=== PATIENT | male | born 1945 | race Caucasian/White ===

== ENCOUNTER 2019-07-04 19:00 | Inpatient (IN) | payer OTHER, MEDICAID ==
[~2019-07-04] VITALS: Ht 165.1 cm; Wt 59.0 kg
--- NOTE | 2019-07-04 19:00 | NUR ---
Placed in room 07 . Placed on ophthalmic medical technician, blood pressure machine and pulse oximeter. To gown for exam. Side rails up. Report given to Ivet CAMPOS.
[2019-07-04 19:05] VITALS: BP_SYST 83
--- NOTE | 2019-07-04 19:10 | NUR ---
VIC Marquis at bedside examining patient.
[2019-07-04] MEDS ORDERED: NACL 0.9% 1,000 ML IV ONE ×2 (19:15→21:45)
--- NOTE | 2019-07-04 19:15 | NUR ---
Pt came to the ED for [facility] for hypotension and lethargy. Reports pt has not been eating for the past 3 days. Pts daughter reports that he is non-verbal and has been for many years. No other complaints/injuries noted. Will cont. to monitor.
--- NOTE | 2019-07-04 19:40 | NUR ---
ER at bedside examining patient.
[2019-07-04 20:14] LABS: BASOPHILS # (AUTO) 0.1 K/uL (0.0-0.2); BASOPHILS % (AUTO) 0.5 % (0.0-2.0); EOSINOPHILS % (AUTO) 0.1 % (0.0-4.0); HEMATOCRIT 48.4 % (36-54); HEMOGLOBIN 15.4 g/dL (14.0-18.0); LYMPHOCYTES # (AUTO) 1.3 K/uL (1.0-5.5); LYMPHOCYTES % (AUTO) 6.4 % (20.5-51.5); MEAN CORPUSCULAR HEMOGLOBIN 26 pg (27-31); MEAN CORPUSCULAR HGB CONC 32 % (32-36); MEAN CORPUSCULAR VOLUME 81 fL (79.0-98.0); MONOCYTES # (AUTO) 1.7 K/uL (0.0-1.0); NEUTROPHILS # (AUTO) 17.9 K/uL (1.8-7.7); PLATELET COUNT (AUTO) 232 K/uL (130-430); RED BLOOD CELL COUNT(AUTO) 6.02 MIL/uL (4.2-6.2); RED CELL DISTRIBUTION WIDTH 17.5 % (9.0-15.0)
--- NOTE | 2019-07-04 20:50 | NUR ---
PT appears to be more awake. However, is non-verbal. ER MD made aware.
[2019-07-04 21:07] LABS: ANION GAP 20 (5-15); CHLORIDE 111 mmol/L (98-107); CREATININE 6.15 mg/dL (0.55-1.30); GLUCOSE 110 mg/dL (70-99); POTASSIUM 4.7 mmol/L (3.5-5.1); SODIUM SERUM 152 mmol/L (136-145); UREA NITROGEN, BLOOD 71 mg/dL (8-21)
[2019-07-04 21:13] LABS: ASPARTATE AMINOTRANSFERASE 153 U/L (10-37); TOTAL BILIRUBIN 0.3 mg/dL (0.0-1.0)
[2019-07-04] MEDS ORDERED: LAM25 PO (21:19)
[2019-07-04] MEDS ORDERED: MEMA10TA PO (21:19)
[2019-07-04] MEDS ORDERED: DOCU-144 PO (21:19)
[2019-07-04] MEDS ORDERED: TAMS-11 PO (21:19)
[2019-07-04] MEDS ORDERED: APIX5TAB PO (21:19)
[2019-07-04] MEDS ORDERED: OLAN2.5T3 PO (21:19)
[2019-07-04] MEDS ORDERED: LISI10TA5 PO (21:19)
[2019-07-04] MEDS ORDERED: MELA3TAB64 PO (21:19)
[2019-07-04] MEDS ORDERED: DEPAK250 PO (21:19)
--- NOTE | 2019-07-04 21:21 | NUR ---
Medication reconciliation completed with information provided by patients paperwork. Any prior medication reconciliation on file was reviewed and corrected.
[2019-07-04 21:43] LABS: ALANINE AMINOTRANSFERASE 124 U/L (12-78)
[2019-07-04 21:51] LABS: ALBUMIN 3.7 g/dL (3.4-4.8)
--- NOTE | 2019-07-04 22:10 | NUR ---
Patient will be admitted to care of Dr. Quan. Admitted to ICU unit. Belongings list completed. Complete and up to date summary report printed. SBAR report to be given at bedside with opportunity for questions.
--- NOTE | 2019-07-04 22:30 | NUR ---
Pt does not have any urine output. Upon observation, pt has a small clot. Changing 16 fr to 18 fr.
[2019-07-04] MEDS ORDERED: ACETAMINOPHEN 650 MG SUPP.RECT RC PRN (23:00)
[2019-07-04] MEDS ORDERED: ACETAMINOPHEN 325 MG TABLET PO PRN (23:00)
--- NOTE | 2019-07-04 23:00 | NUR ---
Transfer to ICU via ACLS protocol. Licensed nurse present. IV present no signs or symptoms of infiltration.
[2019-07-04 23:06] VITALS: BP_SYST 100
[2019-07-04] MEDS ORDERED: LORazepam 2 MG/ML VIAL IVP PRN (23:15)
[2019-07-04 23:20] VITALS: BP_SYST 100
[2019-07-04] MEDS: NACL 0.9% 1,000 ML IV SCH (23:55)
[2019-07-04] MEDS ORDERED: PIPERACILLIN/TAZOBACTAM 2.25 GM VIAL IV ONE (23:57)
[2019-07-05] VITALS (24 sets, daily range): BP systolic 84–136
[2019-07-05] MEDS ORDERED: NOREPINEPHRINE 4 MG/4 ML VIAL IV ONE ×2 (00:35→06:31)
--- NOTE | 2019-07-05 02:43 | NUR ---
CONSULTATION PAGED/CALLED Reason for Consultation: SEPSIS Person Who was Notified: SARAH Consulting Physician: ANA MARIA Almaraz Specialty: ID Ordering Physician: CONSULTATION PAGED/CALLED Reason for Consultation: RENAL FAILURE Person Who was Notified: SARAH Consulting Physician: ALDO Almaraz Specialty: RENAL Ordering Physician: CONSULTATION PAGED/CALLED Reason for Consultation: RESP. FAIL Person Who was Notified: SARAH Consulting Physician: SANTO Graduate Nurse Specialty: PULMO Ordering Physician: [] CONSULTATION PAGED/CALLED Reason for Consultation: SEIZURES Person Who was Notified: SARAH Consulting Physician: JONATHON MENDOZA Graduate Nurse Specialty: NEURO Ordering Physician: [] CONSULTATION PAGED/CALLED Reason for Consultation: NSTEMI Person Who was Notified: SARAH Consulting Physician: JOSIAH Graduate Nurse Specialty: CARDIO Ordering Physician: []
[2019-07-05] MEDS: NACL 0.9% 1,000 ML IV SCH ×3 (06:28→13:00)
[2019-07-05] MEDS: NOREPINEPHRINE BITARTRATE 4 MG in D5W 246 ML IV PRN ×2 (06:30→12:43)
[2019-07-05] MEDS: PIPERACILLIN/TAZOBACTAM 2.25 GM in NS 50 ML IV SCH ×6 (06:33→23:50)
[2019-07-05 06:41] LABS: BASOPHILS % (AUTO) 0.1 % (0.0-2.0); HEMOGLOBIN 13.8 g/dL (14.0-18.0); LYMPHOCYTES # (AUTO) 1.4 K/uL (1.0-5.5); LYMPHOCYTES % (AUTO) 6.9 % (20.5-51.5); MEAN CORPUSCULAR HEMOGLOBIN 25 pg (27-31); MEAN CORPUSCULAR HGB CONC 31 % (32-36); MEAN CORPUSCULAR VOLUME 80 fL (79.0-98.0); MONOCYTES # (AUTO) 2.1 K/uL (0.0-1.0); MONOCYTES % (AUTO) 10.5 % (1.7-9.3); NEUTROPHILS # (AUTO) 16.5 K/uL (1.8-7.7); NEUTROPHILS % (AUTO) 82.5 % (40.0-70.0); PLATELET COUNT (AUTO) 192 K/uL (130-430); RED BLOOD CELL COUNT(AUTO) 5.48 MIL/uL (4.2-6.2); RED CELL DISTRIBUTION WIDTH 16.8 % (9.0-15.0)
--- NOTE | 2019-07-05 06:57 | NUR ---
Nutrition Update Cody Scale 15 noted. Pt admitted for septic shock. Diet: clear liquid BMI: 21.5 kg/m2 RD to follow per nutrition care standards.
[2019-07-05 06:58] LABS: ALANINE AMINOTRANSFERASE 100 U/L (12-78); ALBUMIN 2.9 g/dL (3.4-4.8); ANION GAP 15 (5-15); ASPARTATE AMINOTRANSFERASE 138 U/L (10-37); CHLORIDE 115 mmol/L (98-107); CREATININE 5.51 mg/dL (0.55-1.30); FREE T4 (FREE THYROXINE) 1.5 ng/dl (0.8-1.5); GLUCOSE 135 mg/dL (70-99); SODIUM SERUM 151 mmol/L (136-145); TOTAL BILIRUBIN 0.4 mg/dL (0.0-1.0); UREA NITROGEN, BLOOD 71 mg/dL (8-21)
[2019-07-05 07:15] LABS: CALCIUM 8.3 mg/dL (8.4-11.0)
--- NOTE | 2019-07-05 07:20 | NUR ---
Opening Note Received patient report from nightshift RN via SBAR
--- NOTE | 2019-07-05 08:00 | NUR ---
MD Call Dr. Sheridan called regarding patient, physician provided orders
--- NOTE | 2019-07-05 08:15 | NUR ---
MD Round Dr. Kent at bedside assessing patient, physician entered orders.
[2019-07-05 08:43] LABS: BILIRUBIN,URINE NEGATIVE (NEGATIVE); BLOOD, URINE 3+ (NEGATIVE); CLARITY/URINE CLEAR (CLEAR); COLOR,URINE YELLOW (YELLOW); GLUCOSE,URINE TRACE (NEGATIVE); KETONES,URINE NEGATIVE (NEGATIVE); LEUKOCYTE ESTERASE ,URINE NEGATIVE (NEGATIVE); NITRITE, URINE NEGATIVE (NEGATIVE); PH,URINE 5.5 (5.0-8.0); PROTEIN URINE 2+ (NEGATIVE); UROBILINOGEN,URINE 0.2 (0.2-1.0)
[2019-07-05] MEDS ORDERED: NACL 0.9% 1,000 ML IV ONE (08:45)
[2019-07-05 08:51] LABS: BACTERIA,URINE FEW /HPF (None Seen); FINE GRANULAR CASTS,URINE 0-10 /LPF (None Seen); RBC,URINE >100 /HPF (0-3); URIC ACID CRYSTALS,URINE 0-10 /HPF (None Seen)
[2019-07-05] MEDS ORDERED: HYDROCORTISONE SOD SUCC 100 MG/2 ML VIAL IVP ONE (09:00)
--- NOTE | 2019-07-05 09:00 | NUR ---
Round Dr. Rios at bedside assessing patient, physician entered orders.
[2019-07-05 09:49] LABS: INR 1.4 (0.80-1.20); PROTHROMBIN TIME 14.4 SECS (9.5-12.5)
--- NOTE | 2019-07-05 10:53 | NUR ---
CONSULTATION PAGED/CALLED Reason for Consultation: G TUBE PLACEMENT Person Who was Notified: Consulting Physician: DR KING Cement Sprayer Helper Specialty: G.I. Ordering Physician: DR GOMES
--- NOTE | 2019-07-05 11:00 | NUR ---
Nursing Note Family contacted regarding consent for PICC placement. Family consented to procedure over phone, verified by second RN. Patient also consented to G-Tube placement if needed
[2019-07-05] MEDS ORDERED: ENOXAPARIN SODIUM 30 MG/0.3 ML SYRINGE SUBCUT ONE (11:30)
--- NOTE | 2019-07-05 12:45 | NUR ---
Nursing Note Family members at bedside and on the phone, Caterina: daughter, Maribel: daughter, Nirmala: , Ivet: granddaughter. Family doesn't want G-tube or NG tube placement. Family wishes to change code status to DNR. Attending physician contacted
--- NOTE | 2019-07-05 12:47 | NUR ---
Shafting Worker: PROPERTY MANAGEMENT SPECIALIST Met with Nirmala [place] and granddaughter Ivet Cortez([place]) bedside. Ivet translated for PROPERTY MANAGEMENT SPECIALIST as is Greek Speaking and pt. was not able to participate in the interview due to illness. Family stated pt. has stopped eating, drinking, speaking for about 3 wks and he has not wanted to walk for about 1 month. Re. speaking, family stated pt. stopped talking for years now. They stated pt. has Dementia. Family had just arrived and asked PROPERTY MANAGEMENT SPECIALIST how pt. was. PROPERTY MANAGEMENT SPECIALIST asked Rn to speak to family and was able to update them. Rn shared with family pt. has a picc line, a central line and will possible get a G-tube. They are awaiting Dr. cervantes. PROPERTY MANAGEMENT SPECIALIST called [facility] and spoke to Fadi smith Rn there. He stated it has not been 3 weeks since pt. has eaten or had fluids. He did state pts. dementia has progressed. At feedings, pt would open his mouth but had a hard time eating and drinking. They would give him some sugar and then pt. would open his mouth to try to eat, but it would take him a long time. PROPERTY MANAGEMENT SPECIALIST thanked him for the info. PROPERTY MANAGEMENT SPECIALIST shared info with current Rn. PROPERTY MANAGEMENT SPECIALIST will remain available as needed.
[2019-07-05] MEDS: HYDROCORTISONE SOD SUCC 100 MG/2 ML VIAL IVP SCH ×2 (12:59→22:05)
--- NOTE | 2019-07-05 14:48 | NUR ---
Dietitian Recommendations * Consider swallow evaluation prior to diet advancement LP, RD Please refer to Nutrition Assessment for details. Addendum: 07/05/19 at [address] Amended: Links added.
[2019-07-05 15:47] LABS: ANION GAP 9 (5-15); CALCIUM 7.5 mg/dL (8.4-11.0); CREATININE 3.94 mg/dL (0.55-1.30); GLUCOSE 130 mg/dL (70-99); SODIUM SERUM 152 mmol/L (136-145); UREA NITROGEN, BLOOD 62 mg/dL (8-21)
[2019-07-05 15:52] LABS: CHLORIDE 121 mmol/L (98-107)
[2019-07-05] MEDS ORDERED: *PPN PER PHARMACY XX PRN (17:00)
--- NOTE | 2019-07-05 17:00 | NUR ---
SRIKANTH GERARDO. MESSAGE LEFT TO JESUS OF SPEECH PATHOLOGY.
--- NOTE | 2019-07-05 17:00 | NUR ---
MD Round Dr. Michael at bedside assessing patient, physician entered orders
[2019-07-05] MEDS: 0.45% NACL 1,000 ML IV SCH ×2 (17:09→22:06)
--- NOTE | 2019-07-05 19:26 | NUR ---
Round Dr. Cordon at bedside, new orders provided
--- NOTE | 2019-07-05 19:27 | NUR ---
Closing Note Patient report given to nightshift nurse via SBAR
--- NOTE | 2019-07-05 19:30 | NUR ---
DR HOLT HERE, SEEN PT. NEW ORDERS GIVEN TO BE IMPLEMENTED.
--- NOTE | 2019-07-05 20:00 | NUR ---
OPENS EYES SPON. DOES NOT FOLLOW COMMANDS. APHASIC. ON O2 AT 2L/MIN/NC. BREATH SOUNDS ESSENTIALLY CLEAR, DIMINISHED AT BASES. BOWEL SOUNDS (+). PULSES PALPABLE. SKIN W/D. COLOR SATISFACTORY. HOB UP TO COMFORT. SIDE RAILS UP. SIDE RAILS PADDED. CALL LIGHTS WITHIN REACH. TONY CATH PATENT DRAINING CLOUDY TYRA URINE WITH SEDIMENTS. CT POSTPONED AT THIS TIME UNTIL MORE STABLE, LEVO HAD JUST BEEN TURNED OFF. FAMILY AT BEDSIDE VISITING. QUESTIONS ANSWERED. SOME TEACHING DONE. .
--- NOTE | 2019-07-05 20:15 | NUR ---
DR. ELISEO PRUETT PAGED FOR ORDERS AT THIS TIME. SPOKE WITH LAWRENCE AT THE EXCHANGE.
--- NOTE | 2019-07-05 20:24 | NUR ---
DR. ELISEO PRUETT MADE AWARE OF FAMILY'S WISH FOR PT TO BE MODIFIED CODE AT THIS TIME. ACLS DRUGS ONLY. MD STATES HE WILL SIGN CODE FORM IN AM, TELEPHONE ORDER OBTAINED. ALSO SPOKE WITH FAMILY REGARDING FEEDING, PER FAMILY THEY ARE AGREEABLE FOR EGD AND POSSIBLE G-TUBE PLACEMENT. WILL CONSULT DR. PUCKETT PER ORDERS.
--- NOTE | 2019-07-05 21:00 | NUR ---
FAMILY LEFT FOR HOME. RENAL ULTRASOUND DONE EARLIER.
--- NOTE | 2019-07-05 21:14 | NUR ---
CONSULT: DR. PUCKETT CONSULT CALLED AT THIS TIME. SPOKE WITH LANDRY AT THE EXCHANGE.
--- NOTE | 2019-07-05 21:30 | NUR ---
BP LABILE, SBP DIPPING INTHE 70'S. LEVOPHED RESTARTED AT 4 MCG/MIN.
--- NOTE | 2019-07-05 22:00 | NUR ---
BP BETTER, LEVO TITRATED DOWN TO 2 MCG/MIN.
[2019-07-05] MEDS: levETIRAcetam 500 MG in NS 100 ML IV SCH (22:36)
[2019-07-06] VITALS (13 sets, daily range): BP systolic 86–150
--- NOTE | 2019-07-06 | NUR ---
BP STILL LABILE, LEVOPHED LEFT AT 2 MCG/MIN. TURNED.
--- NOTE | 2019-07-06 02:00 | NUR ---
ASLEEP. NO DISTRESS NOTED.
[2019-07-06] MEDS: 0.45% NACL 1,000 ML IV SCH ×4 (02:15→14:50)
--- NOTE | 2019-07-06 04:00 | NUR ---
DOZES ON AND OFF. HR SOMETIMES DIPS INTO THE 40'S. ASYMPTOMATIC. TO BE MONITORED CLOSELY. 0 DISTRESS.
--- NOTE | 2019-07-06 05:00 | NUR ---
CHG BATH GIVEN. ORAL CARE, TONY CARE, PATTIE-CARE, BACK CARE, Z-GUARD TO PERINEUM, SKIN CARE RENDERED. PARTIAL LINEN CHANGE. DOES NOT ASSIST WITH TURNING. DIANA PROC WELL.
--- NOTE | 2019-07-06 06:00 | NUR ---
UO GOOD. TURNED Q2 HRS AND PRN. LEVOPHED AT 2 MCG/MIN. STARES, DOES NOT FOLLOW COMMANDS. REMAINS IN GUARDED CONDITION.
[2019-07-06] MEDS: HYDROCORTISONE SOD SUCC 100 MG/2 ML VIAL IVP SCH ×3 (06:03→21:00)
[2019-07-06] MEDS: PIPERACILLIN/TAZOBACTAM 2.25 GM in NS 50 ML IV SCH ×3 (06:03→19:50)
[2019-07-06 07:23] LABS: BASOPHILS % (AUTO) 0.1 % (0.0-2.0); HEMATOCRIT 37.1 % (36-54); HEMOGLOBIN 11.2 g/dL (14.0-18.0); LYMPHOCYTES # (AUTO) 1.5 K/uL (1.0-5.5); LYMPHOCYTES % (AUTO) 10.3 % (20.5-51.5); MEAN CORPUSCULAR HEMOGLOBIN 25 pg (27-31); MEAN CORPUSCULAR HGB CONC 30 % (32-36); MEAN CORPUSCULAR VOLUME 83 fL (79.0-98.0); MONOCYTES # (AUTO) 1.1 K/uL (0.0-1.0); MONOCYTES % (AUTO) 7.3 % (1.7-9.3); NEUTROPHILS % (AUTO) 82.3 % (40.0-70.0); PLATELET COUNT (AUTO) 133 K/uL (130-430); RED BLOOD CELL COUNT(AUTO) 4.45 MIL/uL (4.2-6.2); RED CELL DISTRIBUTION WIDTH 17.6 % (9.0-15.0); WHITE BLOOD COUNT (AUTO) 14.5 K/uL (4.8-10.8)
[2019-07-06 07:33] LABS: ALANINE AMINOTRANSFERASE 65 U/L (12-78); ALBUMIN 2.2 g/dL (3.4-4.8); ANION GAP 9 (5-15); ASPARTATE AMINOTRANSFERASE 89 U/L (10-37); CALCIUM 7.4 mg/dL (8.4-11.0); CHLORIDE 114 mmol/L (98-107); GLUCOSE 101 mg/dL (70-99); LIPASE 458 U/L (73-393); PHOSPHORUS 3.4 mg/dL (2.7-4.5); POTASSIUM 3.7 mmol/L (3.5-5.1); SODIUM SERUM 142 mmol/L (136-145); TOTAL BILIRUBIN 0.3 mg/dL (0.0-1.0); TRIGLYCERIDES 82 mg/dL (30-150); UREA NITROGEN, BLOOD 49 mg/dL (8-21)
[2019-07-06 07:58] LABS: THYROID STIMULATING HORMONE 0.19 uIu/mL (0.36-3.74)
[2019-07-06] MEDS: levETIRAcetam 500 MG in NS 100 ML IV SCH ×2 (08:48→20:44)
[2019-07-06] MEDS: ENOXAPARIN SODIUM 30 MG/0.3 ML SYRINGE SUBCUT SCH (08:49)
--- NOTE | 2019-07-06 12:15 | NUR ---
family currently at bedside, daughter states she gave a straw full of ensure to patient, of which he swallowed
--- NOTE | 2019-07-06 13:08 | NUR ---
Lyla, Speech pathologist stated she will visit tomorrow 07/07/2019 for swallow eval.
[2019-07-06] MEDS ORDERED: LR 500 ML IV ONE (14:15)
--- NOTE | 2019-07-06 15:23 | NUR ---
Dr. Altman at bedside with new orders, levophed discontinued at this time
--- NOTE | 2019-07-06 17:15 | NUR ---
Escorted patient on Zole monitor for CT of head with Latasha from X- ray department, patient tolerated procedure well and has returned to ICU- 7 at this time, all fluids and monitoring resumed.
--- NOTE | 2019-07-06 18:39 | NUR ---
paged paged for Dr Quan, dialed . s/w Krystin.
--- NOTE | 2019-07-06 19:25 | NUR ---
PM ASSESSMENT Pt in bed with eyes open resting comfortably. No signs of acute distress or discomfort noted. Family at bedside. Pt on 2L O2 via NC, tolerating well with O2 sats @ 100% and even and unlabored breathing. Pt has a TOMI picc infusing IVF. Dressing c/d/i. Suresh cath noted draining urine to gravity. Bed is locked and in lowest position, call light within reach, will cont to monitor pt.
--- NOTE | 2019-07-06 20:03 | NUR ---
paged paged for Dr Cordon, dialed . s/w Melanie, Dr Black is on-call.
[2019-07-06] MEDS ORDERED: TPN PERIPHERAL 0.0001 ML, SODIUM ACETATE 40 MEQ, POTASSIUM CHLORIDE 20 MEQ, MAGNESIUM S... IV SCH ×9 (21:00)
[2019-07-06] MEDS ORDERED: FAT EMULSIONS 250 ML IV SCH (21:00)
[2019-07-06] MEDS ORDERED: 0.45% NACL 1,000 ML IV SCH (21:00)
--- NOTE | 2019-07-06 22:23 | NUR ---
paged second page for Dr Cordon, dialed . s/w Melanie, Dr Black is on-call.
--- NOTE | 2019-07-06 22:26 | NUR ---
MD Dr. Black made aware of pt's CT brain results. No orders received. Will cont to monitor pt.
[2019-07-07] VITALS (22 sets, daily range): BP systolic 96–173
[2019-07-07] MEDS: PIPERACILLIN/TAZOBACTAM 2.25 GM in NS 50 ML IV SCH ×4 (00:28→18:08)
[2019-07-07] MEDS: D5LR 1,000 ML IV SCH ×3 (00:34→21:30)
--- NOTE | 2019-07-07 01:47 | NUR ---
Pt in bed with eyes closed resting comfortably, no signs of acute distress or discomfort noted. Bed is locked and in lowest position, call light within reach, will cont to monitor pt.
--- NOTE | 2019-07-07 04:40 | NUR ---
CHG CHG bath given to pt at this time. Pt tolerated well. Will cont to monitor pt.
[2019-07-07] MEDS: HYDROCORTISONE SOD SUCC 100 MG/2 ML VIAL IVP SCH ×2 (05:15→14:45)
[2019-07-07 06:47] LABS: EOSINOPHILS % (AUTO) 0.1 % (0.0-4.0); HEMATOCRIT 29.8 % (36-54); HEMOGLOBIN 9.7 g/dL (14.0-18.0); LYMPHOCYTES # (AUTO) 1.4 K/uL (1.0-5.5); LYMPHOCYTES % (AUTO) 14.2 % (20.5-51.5); MEAN CORPUSCULAR HEMOGLOBIN 26 pg (27-31); MEAN CORPUSCULAR HGB CONC 33 % (32-36); MEAN CORPUSCULAR VOLUME 79 fL (79.0-98.0); MONOCYTES # (AUTO) 0.8 K/uL (0.0-1.0); MONOCYTES % (AUTO) 8.2 % (1.7-9.3); NEUTROPHILS # (AUTO) 7.8 K/uL (1.8-7.7); NEUTROPHILS % (AUTO) 77.5 % (40.0-70.0); PLATELET COUNT (AUTO) 124 K/uL (130-430); RED BLOOD CELL COUNT(AUTO) 3.76 MIL/uL (4.2-6.2); RED CELL DISTRIBUTION WIDTH 16.3 % (9.0-15.0)
[2019-07-07 07:01] LABS: ALANINE AMINOTRANSFERASE 50 U/L (12-78); ANION GAP 8 (5-15); ASPARTATE AMINOTRANSFERASE 55 U/L (10-37); CHLORIDE 111 mmol/L (98-107); CREATININE 1.33 mg/dL (0.55-1.30); GLUCOSE 133 mg/dL (70-99); LIPASE 433 U/L (73-393); SODIUM SERUM 143 mmol/L (136-145); TOTAL BILIRUBIN 0.3 mg/dL (0.0-1.0); UREA NITROGEN, BLOOD 32 mg/dL (8-21)
[2019-07-07 07:10] LABS: POTASSIUM 2.9 mmol/L (3.5-5.1)
[2019-07-07 07:11] LABS: CALCIUM 6.9 mg/dL (8.4-11.0)
--- NOTE | 2019-07-07 07:19 | NUR ---
ENDORSEMENT Report given to oncoming dayshift RN using SBAR format and pt care was endorsed. No signs of acute distress or discomfort noted.
--- NOTE | 2019-07-07 07:39 | NUR ---
ATTENDING MD DR GOMES WAS CALLED, RE: CRITICAL LABS. SPOKE TO SEBASTIAN
--- NOTE | 2019-07-07 07:42 | NUR ---
Opening Note Patient received sleeping at this time with no signs of distress. Patient connected to academic advisement director. Patient on 2L oxygen via nasal cannula breathing evenly and unlabored. Patient has a PICC line receiving fluids. Patient has a chamorro catheter in place draining urine. Skin intact. Safety precautions enforced.
[2019-07-07] MEDS ORDERED: POTASSIUM CHLORIDE 40 MEQ in NS 250 ML IV ONE (08:30)
--- NOTE | 2019-07-07 08:30 | NUR ---
Telemetry Patient in telemetry status. Awaiting for bed availability.
[2019-07-07] MEDS: levETIRAcetam 500 MG in NS 100 ML IV SCH ×2 (08:56→21:21)
[2019-07-07] MEDS: ENOXAPARIN SODIUM 30 MG/0.3 ML SYRINGE SUBCUT SCH (08:57)
[2019-07-07] MEDS ORDERED: CALCIUM GLUCONATE 1 GM in NS 100 ML IV ONE (10:00)
--- NOTE | 2019-07-07 11:41 | NUR ---
Nutrition F/U RD reviewed pt's current EMR including diet Hx, physician notes, nursing notes, pertinent labs/meds/procedures, care trends and care activity. Current Diet Order/Nutrition Support: Clear liquid diet x 2 days + D20% AA8.5% at 42ml/hr, IL20% at 5ml/hr via peripheral line Provides: 753 kcal, 43 gm protein and GIR 1.2gm CHO/kg/min Meets: 42% of lower end of estimated calorie needs and 48% of lower end of estimated protein needs. PO intake: 0% of est needs. Subjective information: Pt seen resting in bed, awake but non-verbal. No family at bedside. Per MD notes 07/06: family declined NGT/PEG, awaiting swallow eval (VENEER JOINTER HELPER notified) and PPN for nutrition for the time being. Per RN notes, pt seems to be unable to swallow and did not attempt to feed pt this morning from the clear liquid diet tray. RD rec to discontinue Clear liquid diet and wait for VENEER JOINTER HELPER rec and in the meantime, increase infusion rate of PPN to better meet est needs. Current PO intake: 0% Estimated Energy Expenditure (kcals/day) 4916-4857 kcal/day (30-35 kcal/kg CBW for sepsis) Estimated Protein Required (g/day) 89-118 gm/day (1.5-2 gm/kg CBW for sepsis) Estimated Fluid Required (l/day) 1.8-2 L/day (1 ml/kcal/day for maintenance) Problem/Etiology/Signs/Symptoms Increased nutritional needs related to metabolic demands as evidenced by estimated nutritional requirements for sepsis. *ongoing Inadequate protein-energy intake r/t therapeutic diet Rx and PPN infusion rate AEB PO and PPN intake meeting <50% of est needs. (*new) Expected Outcomes/Goals - Monitor advancement of diet, PPN tolerance and intakes w/ goal of pt meeting at least 75% of estimated nutritional needs, labs trending WNL, normal GI function, and skin integrity/wt maintenance Dietitian Recommendations * Recommend NPO until seen by VENEER JOINTER HELPER. * Recommend: D20% AA8.5% at 90ml/hr, IL20% at 10ml/hr via peripheral line. Provides: 1581 kcal, 92 gm protein, 2400ml fluid, and GIR 2.5gm CHO/kg/min Meets: 89% of lower end of estimated calorie needs and 78% of upper end of estimated protein needs. Follow Up High Risk: F/U in 2-3days Addendum: 07/07/19 at 115[address] ANGELIQUE s/w Harriet quach today at 1000 regarding rec for PPN.
--- NOTE | 2019-07-07 11:53 | NUR ---
Dietitian Recommendations * Recommend NPO until seen by REINFORCING ROD LAYER. * Recommend: D20% AA8.5% at 90ml/hr, IL20% at 10ml/hr via peripheral line. Provides: 1581 kcal, 92 gm protein, 2400ml fluid, and GIR 2.5gm CHO/kg/min Meets: 89% of lower end of estimated calorie needs and 78% of upper end of estimated protein needs. Please see Nutrition F/U note for details. SKILLED NURSING, RD
--- NOTE | 2019-07-07 12:00 | NUR ---
RN Rounds Patient sleeping at this time. Patient in no signs of distress. Patient not in pain.
--- NOTE | 2019-07-07 12:35 | NUR ---
MD Rounds Dr. Quan at bedside for examination. New orders received.
--- NOTE | 2019-07-07 13:37 | NUR ---
CONSULTATION PAGED/CALLED Reason for Consultation: [] HYDROCEPHALUS Person Who was Notified: [] MARGOT Consulting Physician: [] DR GARRISON PUBLIC RELATIONS ANALYST FOR DR CANTU Digital Media Analyst Specialty: [] NEUROSURGEON Ordering Physician: [] DR GOMES
--- NOTE | 2019-07-07 13:41 | NUR ---
SPEECH THERAPY CONSULT WAS CALLED TO JESUS RE: SWALLOWING EVAL. LEFT A VOICE MESSAGE.
--- NOTE | 2019-07-07 14:00 | NUR ---
MD Rounds Dr. Mora at bedside for examination. No new orders received.
--- NOTE | 2019-07-07 14:30 | NUR ---
MD Rounds Dr. Black at bedside for examination. No new orders received.
--- NOTE | 2019-07-07 17:06 | NUR ---
S.T. SWALLOW EVAL SWALLOW EVAL COMPLETED. PT PRESENTS W/ MOD-SEV PRE-ORAL AND ORAL DYSPHAGIA W/ DECREASED AND ERRATIC P.O. AWARENESS, DECREASED P.O. TOOLING SUPERVISOR, AND INCONSISTENT BOLUS TRANSFER. HOWEVER, WHEN PT IS AWARE OF BOLUS AND RECEIVES BOLUS, TRANSFER AND SWALLOW IS TIMELY W/ NO S/S OF ASPIRATION. RISK FOR MALNUTRITION AND DEHYDRATION. REC: PUREE DIET. THIN LIQUIDS OK. MONITOR FOR ADEQUATE INTAKE. IF INADEQUATE, CONSIDER ALTERNATIVE METHOD FOR FEEDING. NURSE MARIA FERNANDA NOTIFIED. [id number] CL G8997 CL G8998 CL NOMS LEVEL 3
--- NOTE | 2019-07-07 19:32 | NUR ---
Closing Note Patient endorsed to film processing shift supervisor RN using SBAR format. Patient in no signs of distress at this time. Patient not in pain.
--- NOTE | 2019-07-07 20:00 | NUR ---
PATIENT WAS ACCEPTED AND ASSESS WAS DONE ENTER THE ROOM THE ROOM PATIENT WOULD ,EYED OPEN TRACKING,FOLLOW THE PERSON IN THE ROOM, STABLE WOULD NOT SAID ANY THING IVF OF TPN LIPID AND MAINTAIN ALL PATENT ,HAS AN TONY WITH TYRA URINE NO BM WAS NOTICE NOTICE NO ACCUC FOR BLOOD GLUCOSE WITH THE TPN, STABLE 2200 NO CHANGE WITH CONDITION NOTICE BP HI 170/94 NO MEDICATION 2330 ATIVAN 0.5 MG IV WAS GIVEN TO RELAXED THE PATIENT , STABLE 07/08/19 PATIENT WAS RESTING AND ASLEEP BP HAD IMPROVED WAS LOWER MAINTAIN CALM 0200 PATIENT GOTTEN READY FOR TRANS FO NEED THE BED FOR ADMISSION FROM THE ER, 0240 PATIENT WAS TAKEN TO ROOM 126 VIA BED,THE PATIENT WAS MOVE TO BED ON THE FLOOR,REMAINED ASLEEP CONDITION UNCHANGE , REPORT WAS GIVEN TO THE RECEIVING NURSE JONATHAN MORA
[2019-07-07] MEDS ORDERED: TPN PERIPHERAL IV SCH ×10 (21:00)
[2019-07-07] MEDS ORDERED: SODIUM ACETATE IV SCH ×10 (21:00)
[2019-07-07] MEDS ORDERED: [UNRECOGNIZED DRUG - OTHER] IV SCH ×10 (21:00)
[2019-07-07] MEDS ORDERED: POTASSIUM CHLORIDE IV SCH ×10 (21:00)
[2019-07-07] MEDS: FAT EMULSIONS 250 ML IV SCH (21:20)
[2019-07-08] VITALS (7 sets, daily range): BP systolic 113–178
[2019-07-08] MEDS: HYDROCORTISONE SOD SUCC 100 MG/2 ML VIAL IVP SCH ×3 (00:28→21:00)
[2019-07-08] MEDS: PIPERACILLIN/TAZOBACTAM 2.25 GM in NS 50 ML IV SCH ×3 (00:29→13:02)
--- NOTE | 2019-07-08 03:00 | NUR ---
received pt from icu, sleeping, no sob, not distress.no pain. wakes up. when turn. non verbal. pt has chamorro catheter drain by gravity, picc line to right upper 2 lumen with ongoing tpn at 50, lipids at 10 and d5lr at 100, vital sign are stable, no fever, o2 2l via nc. pt has no skin breakdown at the back, skin abrasion seen on right thigh. sinus deedee at monitor. unable to educate pt due to condition. no family at bedside. needs attended. padded rails up, low bed position and lock, call ight in reach. will monitor.
--- NOTE | 2019-07-08 05:25 | NUR ---
FAMILY NOTIFICATION DAUGHTER EMETERIO RANGEL MADE AWARE OF PT TRANSFER TO TELE 120B AT THIS TIME.
[2019-07-08] MEDS: D5LR 1,000 ML IV SCH (05:46)
--- NOTE | 2019-07-08 06:00 | NUR ---
am iv medication given, reposition, stable. no pain. pt tolerate well. needs attended, safety on. will monitor.
[2019-07-08 06:36] LABS: BASOPHILS % (AUTO) 0.1 % (0.0-2.0); EOSINOPHILS % (AUTO) 0.1 % (0.0-4.0); HEMATOCRIT 31.7 % (36-54); HEMOGLOBIN 10.3 g/dL (14.0-18.0); LYMPHOCYTES # (AUTO) 0.8 K/uL (1.0-5.5); LYMPHOCYTES % (AUTO) 11.9 % (20.5-51.5); MEAN CORPUSCULAR HEMOGLOBIN 26 pg (27-31); MEAN CORPUSCULAR HGB CONC 33 % (32-36); MEAN CORPUSCULAR VOLUME 78 fL (79.0-98.0); MONOCYTES # (AUTO) 0.4 K/uL (0.0-1.0); NEUTROPHILS # (AUTO) 5.5 K/uL (1.8-7.7); NEUTROPHILS % (AUTO) 81.9 % (40.0-70.0); PLATELET COUNT (AUTO) 118 K/uL (130-430); RED BLOOD CELL COUNT(AUTO) 4.05 MIL/uL (4.2-6.2); RED CELL DISTRIBUTION WIDTH 15.5 % (9.0-15.0); WHITE BLOOD COUNT (AUTO) 6.7 K/uL (4.8-10.8)
[2019-07-08 06:44] LABS: ALANINE AMINOTRANSFERASE 50 U/L (12-78); ANION GAP 7 (5-15); ASPARTATE AMINOTRANSFERASE 42 U/L (10-37); CHLORIDE 105 mmol/L (98-107); CHOLESTEROL 115 mg/dL (<200); CREATININE 0.95 mg/dL (0.55-1.30); GLUCOSE 158 mg/dL (70-99); HDL CHOLESTEROL 22 mg/dL (>45); LDL CHOLESTEROL 79 mg/dL (<100); PHOSPHORUS 1.5 mg/dL (2.7-4.5); SODIUM SERUM 138 mmol/L (136-145); TOTAL BILIRUBIN 0.3 mg/dL (0.0-1.0); TRIGLYCERIDES 104 mg/dL (30-150); UREA NITROGEN, BLOOD 21 mg/dL (8-21)
--- NOTE | 2019-07-08 07:30 | NUR ---
closing: pt is sleeping, comfortable. stable. ivf, tpn and lipids infusing well. chamorro catheter intact,.npo,needs attended. safety on. bedside report given to am rn.
[2019-07-08 07:45] LABS: CALCIUM 6.8 mg/dL (8.4-11.0); POTASSIUM 2.4 mmol/L (3.5-5.1)
--- NOTE | 2019-07-08 08:00 | NUR ---
AM NOTES RECEIVED PT IN BED. A/OX1. EYES OPEN NON VERBAL. VITALSSTABLE NOT IN ACUTE DISTRESS. ON 2 L NC. TOMI PICC LINE TWO LUMEN PATENT WITH GOOD BLOOD RETURN. TPN AT 50ML/HR AND LIPID 10 ML/HR CONTINUE ORDERED INFUSING WELL.SAFTEY PRECAUTIONS IN PLACE. TONY DRAINING YELLOW COLOR URINE..SEIZURE PRECAUTIONS IN PLACE. FOR SAFETY. ON IAR MATTRESS. WILL CONTINUE TO MONITOR
[2019-07-08] MEDS ORDERED: MAGNESIUM SULFATE 50 ML IV ONE (08:15)
[2019-07-08] MEDS ORDERED: POTASSIUM CHLORIDE 40 MEQ in NS 250 ML IV SCH (08:15)
[2019-07-08] MEDS ORDERED: CALCIUM GLUCONATE 2 GM in NS 100 ML IV ONE (08:15)
[2019-07-08] MEDS: levETIRAcetam 500 MG in NS 100 ML IV SCH ×2 (09:22→22:36)
[2019-07-08] MEDS: ENOXAPARIN SODIUM 30 MG/0.3 ML SYRINGE SUBCUT SCH (09:23)
--- NOTE | 2019-07-08 10:00 | NUR ---
ROUNDS PT STABLE NOT IN ACUTE DISTRESS. REPOSITIONED WITH PILLOW. WILL CONTIINUE TO MONITOR
--- NOTE | 2019-07-08 12:15 | NUR ---
TRANSFERED TO MRI PT TRANSFERRED TO MRI IN STABLE CONDITION
--- NOTE | 2019-07-08 13:05 | NUR ---
BACK FROM MRI PT BACK FROM MRI. NO S/S OF DISTRESS. NOTED. IVF AND TPN AND LIPID CONNECTED BACK.INFUSING WELL. KEPT COMFORTABLE.WILL CONTINUE TO MONITOR
[2019-07-08] MEDS: KCL 20 mEq in 100 mL (PREMIX) 100 ML IV SCH ×2 (13:46→16:18)
[2019-07-08] MEDS ORDERED: *LOVENOX 1MG/KG Q12H/PHARMACY XX PRN (14:15)
[2019-07-08] MEDS ORDERED: COMMUNICATION ORDER XX ONE (15:00)
--- NOTE | 2019-07-08 15:00 | NUR ---
ROUNDS PT STABLE NOT IN ACUTE DISTRESS. TPN/LIPID AND IVF INFUSING WELL ORDERED.DUE IV MEDICATIONS GIVEN ORDERED REPOSITIONED WITH PILLOW. WILL CONTIINUE TO MONITOR
[2019-07-08] MEDS: CEFEPIME 1 GM in D5W 50 ML IV SCH (17:31)
--- NOTE | 2019-07-08 19:00 | NUR ---
closing notes pt resting comfortably. not in acute distress. no s/s of pain or distress noted. repositioned with pillow.. needs attended. report given to night rn
[2019-07-08] MEDS ORDERED: TPN PERIPHERAL IV SCH ×10 (21:00)
[2019-07-08] MEDS ORDERED: SODIUM ACETATE IV SCH ×10 (21:00)
[2019-07-08] MEDS ORDERED: POTASSIUM CHLORIDE IV SCH ×10 (21:00)
[2019-07-08] MEDS ORDERED: ENOXAPARIN SODIUM 60 MG/0.6 ML SYRINGE SUBCUT SCH (21:00)
[2019-07-08] MEDS ORDERED: [UNRECOGNIZED DRUG - OTHER] IV SCH ×10 (21:00)
[2019-07-08] MEDS ORDERED: K PHOS 30 MM in NS 250 ML IV ONE (22:00)
[2019-07-08] MEDS: FAT EMULSIONS 250 ML IV SCH (22:19)
--- NOTE | 2019-07-09 03:29 | NUR ---
Consultation Paged Reason for Consultation: Enlarged Prostate Was consult called: Y Person who was notified: Luann Consulting Physician: Delroy Carvalho (BELLA Valentino is slurry control tender) Metal Control Coordinator Ordering Physician: Dr. Quan
[2019-07-09 06:27] LABS: GLUCOSE 119 mg/dL (70-99); SODIUM SERUM 137 mmol/L (136-145)
[2019-07-09 06:43] LABS: EOSINOPHILS % (AUTO) 0.5 % (0.0-4.0); HEMOGLOBIN 10.8 g/dL (14.0-18.0); LYMPHOCYTES # (AUTO) 1.4 K/uL (1.0-5.5); LYMPHOCYTES % (AUTO) 20.3 % (20.5-51.5); MEAN CORPUSCULAR HEMOGLOBIN 26 pg (27-31); MEAN CORPUSCULAR HGB CONC 33 % (32-36); MEAN CORPUSCULAR VOLUME 79 fL (79.0-98.0); MONOCYTES # (AUTO) 0.6 K/uL (0.0-1.0); MONOCYTES % (AUTO) 8.8 % (1.7-9.3); NEUTROPHILS % (AUTO) 70.4 % (40.0-70.0); PLATELET COUNT (AUTO) 122 K/uL (130-430); RED BLOOD CELL COUNT(AUTO) 4.21 MIL/uL (4.2-6.2); RED CELL DISTRIBUTION WIDTH 15.3 % (9.0-15.0); WHITE BLOOD COUNT (AUTO) 7.1 K/uL (4.8-10.8)
[2019-07-09 06:47] LABS: ANION GAP 7 (5-15); CHLORIDE 102 mmol/L (98-107); CREATININE 0.74 mg/dL (0.55-1.30); PHOSPHORUS 3.3 mg/dL (2.7-4.5); UREA NITROGEN, BLOOD 15 mg/dL (8-21)
--- NOTE | 2019-07-09 07:30 | NUR ---
Opening note patient resting in bed at this time, no complaints of pain. PICC line patent, intact, and infusing TPN as ordered. no adverse side effects. No infiltration noted. On seizure, safety and aspiration precautions, HOB kept elevated, bed alarm on, 3 side rails up, padded side rails in place, call light within reach. Patient in stable condition. Will continue to monitor.
[2019-07-09 07:51] VITALS: BP_SYST 150
[2019-07-09 07:56] LABS: CALCIUM 6.5 mg/dL (8.4-11.0); POTASSIUM 2.8 mmol/L (3.5-5.1)
[2019-07-09 08:00] VITALS: BP_SYST 134
[2019-07-09] MEDS ORDERED: POTASSIUM CHLORIDE 40 MEQ in NS 250 ML IV ONE (08:45)
[2019-07-09] MEDS: APIXABAN 2.5 MG TABLET PO SCH ×2 (08:52→08:59)
[2019-07-09] MEDS: CEFEPIME 1 GM in D5W 50 ML IV SCH (08:52)
[2019-07-09] MEDS: levETIRAcetam 500 MG in NS 100 ML IV SCH ×2 (08:53→20:36)
[2019-07-09] MEDS: HYDROCORTISONE SOD SUCC 100 MG/2 ML VIAL IVP SCH (08:53)
--- NOTE | 2019-07-09 09:00 | NUR ---
medications patient refusing to open mouth, unable to given morning medications. MD aware.
--- NOTE | 2019-07-09 11:30 | NUR ---
rounds patient resting in bed at this time, PICC line, patent, intact, infusing medications as ordered.
[2019-07-09] MEDS ORDERED: MAGNESIUM SULFATE 50 ML IV ONE (11:45)
[2019-07-09] MEDS ORDERED: POTASSIUM CHLORIDE 20 MEQ TAB.PRT.SR PO ONE (11:45)
[2019-07-09] MEDS ORDERED: CHOLECALCIFEROL (VITAMIN D3) 2,000 UNIT TABLET PO ONE (11:45)
[2019-07-09] MEDS ORDERED: CALCIUM 500 MG/TAB PO ONE (12:00)
[2019-07-09] MEDS ORDERED: POTASSIUM CHLORIDE 40 MEQ, LIDOCAINE JECT 2% PF 100 MG 50 MG in NS 250 ML IV ONE ×2 (12:00→13:45)
[2019-07-09] MEDS ORDERED: CALCIUM CARBONATE 650 MG TABLET PO SCH (12:00)
[2019-07-09] MEDS ORDERED: CALCIUM CHLORIDE 1 GM in NS 100 ML IV ONE (12:00)
[2019-07-09 12:02] VITALS: BP_SYST 168
[2019-07-09] MEDS ORDERED: *LOVENOX 1MG/KG Q12H/PHARMACY XX PRN (13:15)
[2019-07-09] MEDS ORDERED: ENOXAPARIN SODIUM 40 MG/0.4 ML SYRINGE SUBCUT ONE (13:15)
--- NOTE | 2019-07-09 13:30 | NUR ---
Lunch Patient sitting up in bed, eating lunch with assistance, noted with poor appetite. Oral care provided, no other needs at this time.
--- NOTE | 2019-07-09 15:30 | NUR ---
skin care Skin care provided. linens changed, no other needs at this time.
[2019-07-09 16:01] VITALS: BP_SYST 118
--- NOTE | 2019-07-09 17:00 | NUR ---
rounds patient resting in bed at this time, no complaints of pain. Oral care provided, no other needs at this time.
--- NOTE | 2019-07-09 18:36 | NUR ---
Closing note patient resting in bed at this time, no complaints of pain. PICC line patent, intact, and infusing TPN as ordered. no adverse side effects. No infiltration noted. On seizure, safety and aspiration precautions, HOB kept elevated, bed alarm on, 3 side rails up, padded side rails in place, call light within reach. Patient in stable condition. All needs met.
--- NOTE | 2019-07-09 19:30 | NUR ---
OPENING NOTE RECEIVED CARE OF PT AND SBAR REPORT. RECEIVED PT IN BED, A/OX1, EYES OPEN NON VERBAL. VSS. NOT IN ACUTE DISTRESS. ON 2 L NC. TOMI PICC LINE TWO LUMEN PATENT WITH GOOD BLOOD RETURN. TPN AND LIPIDS ARE INFUSING AT ORDERED RATE, TO BE DISCONTINUED TONIGHT. F/C IS INTACT AND DRAINING YELLOW URINE TO GRAVITY. SAFETY PRECAUTIONS ARE IN PLACE. ASPIRATION PRECAUTIONS ARE IN PLACE. SEIZURE PRECAUTIONS IN PLACE. ON AIR MATTRESS. WILL CONTINUE TO MONITOR.
[2019-07-09 20:00] VITALS: BP_SYST 104
[2019-07-09] MEDS: CALCIUM 500 MG/TAB PO SCH (20:36)
[2019-07-09] MEDS: POTASSIUM CHLORIDE 20 MEQ TAB.PRT.SR PO SCH (20:36)
[2019-07-09] MEDS: CHOLECALCIFEROL (VITAMIN D3) 2,000 UNIT TABLET PO SCH (20:36)
[2019-07-09] MEDS: ENOXAPARIN SODIUM 60 MG/0.6 ML SYRINGE SUBCUT SCH (20:40)
--- NOTE | 2019-07-09 20:40 | NUR ---
MED PASS SCHEDULED MEDICATIONS ADMINISTERED ORDERED. MEDICATIONS AND POTENTIAL SIDE EFFECTS EXPLAINED TO PT, PT CONFUSED. TPN AND LIPIDS DISCONTINUED ORDERED. NO S/S OF ACUTE DISTRESS. BREATHING IS UNLABORED TO O2 VIA NC AT 2L. SAFETY PRECAUTIONS MAINTAINED. WILL MONITOR.
--- NOTE | 2019-07-09 22:05 | NUR ---
INCONTINENCE CARE PT INCONTINENT OF BOWELS. INCONTINENCE CARE RENDERED WITH ASSISTANCE FROM BRITT KIMBALL. PT REPOSITIONED FOR COMFORT WITH PILLOW SUPPORT. NO S/S OF DISTRESS. NO SIGN OF PAIN OR DISCOMFORT. SAFETY MAINTAINED. WILL MONITOR.
--- NOTE | 2019-07-10 00:15 | NUR ---
RN ROUNDS: PT RESTING IN BED, NO S/S OF ACUTE DISTRESS, BREATHING IS UNLABORED TO ROOM AIR, NO SIGN OF PAIN OR DISCOMFORT. SAFETY PRECAUTIONS MAINTAINED. WILL MONITOR.
[2019-07-10 01:32] VITALS: BP_SYST 110
--- NOTE | 2019-07-10 02:20 | NUR ---
RN ROUNDS: PT RESTING IN BED WITH EYES CLOSED, NO S/S OF ACUTE DISTRESS, BREATHING IS UNLABORED TO ROOM AIR, NO SIGN OF PAIN OR DISCOMFORT. SAFETY PRECAUTIONS MAINTAINED. WILL MONITOR.
--- NOTE | 2019-07-10 04:00 | NUR ---
REPOSITIONED PT REPOSITIONED FOR COMFORT WITH PILLOW SUPPORT WITH ASSISTANCE FROM BRITT KIMBALL. NO S/S OF DISTRESS. NO SIGN OF PAIN OR DISCOMFORT. SAFETY MAINTAINED. WILL MONITOR.
[2019-07-10 06:12] LABS: EOSINOPHILS # (AUTO) 0.2 K/uL (0.0-0.4); EOSINOPHILS % (AUTO) 1.5 % (0.0-4.0); HEMATOCRIT 37.4 % (36-54); HEMOGLOBIN 11.9 g/dL (14.0-18.0); LYMPHOCYTES # (AUTO) 3.1 K/uL (1.0-5.5); LYMPHOCYTES % (AUTO) 30.9 % (20.5-51.5); MEAN CORPUSCULAR HEMOGLOBIN 25 pg (27-31); MEAN CORPUSCULAR HGB CONC 32 % (32-36); MEAN CORPUSCULAR VOLUME 79 fL (79.0-98.0); MONOCYTES # (AUTO) 0.9 K/uL (0.0-1.0); MONOCYTES % (AUTO) 9.3 % (1.7-9.3); NEUTROPHILS # (AUTO) 5.9 K/uL (1.8-7.7); NEUTROPHILS % (AUTO) 58.3 % (40.0-70.0); PLATELET COUNT (AUTO) 126 K/uL (130-430); RED BLOOD CELL COUNT(AUTO) 4.76 MIL/uL (4.2-6.2); RED CELL DISTRIBUTION WIDTH 15.6 % (9.0-15.0); WHITE BLOOD COUNT (AUTO) 10.2 K/uL (4.8-10.8)
[2019-07-10 06:13] LABS: INR 1.1 (0.80-1.20); PROTHROMBIN TIME 10.6 SECS (9.5-12.5)
[2019-07-10 06:29] LABS: ALANINE AMINOTRANSFERASE 81 U/L (12-78); ALBUMIN 2.4 g/dL (3.4-4.8); ANION GAP 5 (5-15); ASPARTATE AMINOTRANSFERASE 46 U/L (10-37); CALCIUM 7.2 mg/dL (8.4-11.0); CHLORIDE 109 mmol/L (98-107); CREATININE 0.83 mg/dL (0.55-1.30); GLUCOSE 85 mg/dL (70-99); POTASSIUM 3.2 mmol/L (3.5-5.1); SODIUM SERUM 144 mmol/L (136-145); TOTAL BILIRUBIN 0.3 mg/dL (0.0-1.0); UREA NITROGEN, BLOOD 17 mg/dL (8-21)
--- NOTE | 2019-07-10 06:35 | NUR ---
CLOSING NOTE RECEIVED PT IN BED, A/OX1, EYES OPEN NON VERBAL. VSS. NOT IN ACUTE DISTRESS. ON 2 L NC. TOMI PICC LINE TWO LUMEN PATENT WITH GOOD BLOOD RETURN. F/C IS INTACT AND DRAINING YELLOW URINE TO GRAVITY. SAFETY PRECAUTIONS ARE IN PLACE. ASPIRATION PRECAUTIONS ARE IN PLACE. SEIZURE PRECAUTIONS IN PLACE. ON AIR MATTRESS. WILL ENDORSE PT CARE TO DAY SHIFT RN.
--- NOTE | 2019-07-10 07:30 | NUR ---
Opening note patient resting in bed at this time, no complaints of pain. PICC line patent, intact. no adverse side effects. No infiltration noted. On seizure, safety and aspiration precautions, HOB kept elevated, bed alarm on, 3 side rails up, padded side rails in place, call light within reach. Patient in stable condition. Will continue to monitor.
[2019-07-10 08:00] VITALS: BP_SYST 117
--- NOTE | 2019-07-10 08:15 | NUR ---
Gt placement Patient is NPO, all morning medications held. Patient left for GI lab via bed in stable condition.
[2019-07-10] MEDS ORDERED: MEPERIDINE HCL/PF 25 MG/ML DISP.SYRIN ONE (08:41)
[2019-07-10] MEDS ORDERED: MIDAZOLAM HCL 5 MG/5 ML VIAL ONE (08:42)
[2019-07-10] MEDS: CALCIUM 500 MG/TAB PO SCH ×2 (09:00→21:26)
[2019-07-10] MEDS: ENOXAPARIN SODIUM 60 MG/0.6 ML SYRINGE SUBCUT SCH (09:00)
[2019-07-10] MEDS: CHOLECALCIFEROL (VITAMIN D3) 2,000 UNIT TABLET PO SCH ×2 (09:00→21:26)
[2019-07-10] MEDS: POTASSIUM CHLORIDE 20 MEQ TAB.PRT.SR PO SCH ×2 (09:00→21:25)
--- NOTE | 2019-07-10 10:00 | NUR ---
patient returns patient returned from GI lab S/P GT placement. additional order by Dr. Michael, not to use GT for 12 hours. patient in stable condition.
[2019-07-10] MEDS: levETIRAcetam 500 MG in NS 100 ML IV SCH ×2 (10:20→21:25)
[2019-07-10] MEDS: CEFEPIME 1 GM in D5W 50 ML IV SCH (10:20)
[2019-07-10] MEDS: KCL 20 mEq in 100 mL (PREMIX) 100 ML IV SCH ×2 (10:20→12:51)
--- NOTE | 2019-07-10 12:30 | NUR ---
Rounds patient resting in bed at this time, no complaints of pain. Suresh catheter emptied, no other needs at this time.
[2019-07-10 12:35] VITALS: BP_SYST 98
[2019-07-10] MEDS ORDERED: POTASSIUM CHLORIDE 40 MEQ, LIDOCAINE JECT 2% PF 100 MG 50 MG in NS 250 ML IV ONE (13:15)
[2019-07-10] MEDS ORDERED: D5LR 1,000 ML IV SCH (14:15)
--- NOTE | 2019-07-10 14:53 | NUR ---
Rounds skin care provided, oral care provided. Linens changed, no other needs at this time.
[2019-07-10] MEDS: D5LR 1,000 ML IV SCH (15:29)
[2019-07-10 16:06] VITALS: BP_SYST 113
--- NOTE | 2019-07-10 16:40 | NUR ---
Rounds patient resting in bed at this time, no complaints of pain. PICC line patent, intact, and infusing fluids as ordered. No adverse side effects. no infiltration noted.
--- NOTE | 2019-07-10 16:44 | NUR ---
Nutrition F/U (short note d/t high patient load) RD reviewed pt's current EMR including diet Hx, physician notes, nursing notes, pertinent labs/meds/procedures, care trends, and care activity. Plan for TF to begin at 2200 per RN report. Pt is s/p PEG placement this morning. RD Recommendation for TF: Jevity 1.5 at 55 ml/hr (goal rate), Free Water Flush: 150 ml Q4h via GT Provides: 1980 kcal/day, 84 gm protein/day, and 1903 ml free water/day Meets: 96% of upper end of estimated caloric needs and 94% of lower end of estimated protein needs Pt remains at high nutritional risk; F/U within 2-3 days.
--- NOTE | 2019-07-10 18:35 | NUR ---
CLOSING note patient resting in bed at this time, no complaints of pain. PICC line patent, intact. no adverse side effects. No infiltration noted. chamorro catheter in place, draining yellow urine. On seizure, safety and aspiration precautions, HOB kept elevated, bed alarm on, 3 side rails up, padded side rails in place, call light within reach. Patient in stable condition. all needs met.
--- NOTE | 2019-07-10 19:30 | NUR ---
OPENING NOTE RECEIVED CARE OF PT AND SBAR REPORT. RECEIVED PT IN BED, A/OX1, EYES OPEN NON VERBAL. VSS. NOT IN ACUTE DISTRESS. ON 2 L NC. TOMI PICC LINE TWO LUMEN PATENT WITH GOOD BLOOD RETURN. IVF ARE INFUSING AT ORDERED RATE. F/C IS INTACT AND DRAINING YELLOW URINE TO GRAVITY. ABDOMINAL BINDER IS IN PLACE. SAFETY PRECAUTIONS ARE IN PLACE. ASPIRATION PRECAUTIONS ARE IN PLACE. SEIZURE PRECAUTIONS IN PLACE. ON AIR MATTRESS. WILL CONTINUE TO MONITOR.
[2019-07-10 20:00] VITALS: BP_SYST 116
[2019-07-10] MEDS: TAMSULOSIN HCL 0.4 MG CAP PO SCH (21:26)
--- NOTE | 2019-07-10 21:26 | NUR ---
TUBE FEEDING/MEDICATION PASS MEDICATIONS ADMINISTERED VIA GTUBE. GTUBE PATENT. TUBE FEEDING STARTED AT 40 CC/HR. ASPIRATION PRECAUTIONS ARE IN PLACE. WILL MONITOR.
--- NOTE | 2019-07-10 23:15 | NUR ---
REPOSITIONED PT REPOSITIONED FOR COMFORT. NO S/S OF ACUTE DISTRESS. PT TOLERATED WELL. ASPIRATION PRECAUTIONS MAINTAINED. WILL MONITOR.
[2019-07-11 00:43] VITALS: BP_SYST 131
[2019-07-11] MEDS: D5LR 1,000 ML IV SCH ×2 (02:35→10:15)
--- NOTE | 2019-07-11 02:35 | NUR ---
IVF BAG CHANGE NEW BAG OF D5LR HUNG AND REGULATED TO ORDERED RATE.
--- NOTE | 2019-07-11 04:25 | NUR ---
INCONTINENCE CARE INCONTINENCE CARE RENDERED. PT REPOSITIONED FOR COMFORT WITH PILLOW SUPPORT. ASPIRATION PRECAUTIONS IN PLACE. SAFETY MAINTAINED. WILL MONITOR.
[2019-07-11 06:26] LABS: ALANINE AMINOTRANSFERASE 80 U/L (12-78); ALBUMIN 2.1 g/dL (3.4-4.8); ASPARTATE AMINOTRANSFERASE 35 U/L (10-37); CALCIUM 7.8 mg/dL (8.4-11.0); CHLORIDE 105 mmol/L (98-107); CREATININE 0.75 mg/dL (0.55-1.30); GLUCOSE 117 mg/dL (70-99); POTASSIUM 3.6 mmol/L (3.5-5.1); SODIUM SERUM 135 mmol/L (136-145); TOTAL BILIRUBIN 0.3 mg/dL (0.0-1.0); UREA NITROGEN, BLOOD 14 mg/dL (8-21)
[2019-07-11 06:44] LABS: ANION GAP < 3 (5-15)
[2019-07-11 06:52] LABS: BASOPHILS % (AUTO) 0.1 % (0.0-2.0); EOSINOPHILS # (AUTO) 0.4 K/uL (0.0-0.4); EOSINOPHILS % (AUTO) 3.9 % (0.0-4.0); HEMATOCRIT 33.6 % (36-54); HEMOGLOBIN 10.9 g/dL (14.0-18.0); LYMPHOCYTES # (AUTO) 2.4 K/uL (1.0-5.5); LYMPHOCYTES % (AUTO) 25.8 % (20.5-51.5); MEAN CORPUSCULAR HEMOGLOBIN 26 pg (27-31); MEAN CORPUSCULAR HGB CONC 33 % (32-36); MEAN CORPUSCULAR VOLUME 79 fL (79.0-98.0); MONOCYTES # (AUTO) 0.7 K/uL (0.0-1.0); MONOCYTES % (AUTO) 7.7 % (1.7-9.3); NEUTROPHILS # (AUTO) 5.8 K/uL (1.8-7.7); NEUTROPHILS % (AUTO) 62.5 % (40.0-70.0); PLATELET COUNT (AUTO) 117 K/uL (130-430); RED BLOOD CELL COUNT(AUTO) 4.28 MIL/uL (4.2-6.2); RED CELL DISTRIBUTION WIDTH 16.1 % (9.0-15.0); WHITE BLOOD COUNT (AUTO) 9.3 K/uL (4.8-10.8)
--- NOTE | 2019-07-11 06:59 | NUR ---
CLOSING note patient resting in bed at this time, no complaints of pain. PICC line patent, intact. no adverse side effects. No infiltration noted. chamorro catheter in place, draining yellow urine. Abdominal binder is in place. Tube feeding is running as ordered, no residual noted. On seizure, safety and aspiration precautions, HOB kept elevated, bed alarm on, 3 side rails up, padded side rails in place, call light within reach. Patient in stable condition. all needs met.
--- NOTE | 2019-07-11 08:00 | NUR ---
RECEIVED PATIENT WITH NO COMPLAINTS IV INFUSING GOOD VIA RIGHT TOMI MIDLINE INTACT PATENT
[2019-07-11] MEDS ORDERED: APIXABAN 2.5 MG TABLET PO SCH (09:00)
[2019-07-11] MEDS: CALCIUM 500 MG/TAB PO SCH (09:36)
[2019-07-11] MEDS: CEFEPIME 1 GM in D5W 50 ML IV SCH (09:36)
[2019-07-11] MEDS: TAMSULOSIN HCL 0.4 MG CAP PO SCH (09:44)
[2019-07-11] MEDS: POTASSIUM CHLORIDE 20 MEQ TAB.PRT.SR PO SCH (09:44)
[2019-07-11] MEDS: CHOLECALCIFEROL (VITAMIN D3) 2,000 UNIT TABLET PO SCH (09:44)
[2019-07-11] MEDS: levETIRAcetam 500 MG in NS 100 ML IV SCH (09:45)
--- NOTE | 2019-07-11 10:00 | NUR ---
SEED MY MD WITH ORDERS TUBE FEEDING IS ONGOING AT 55 CC HR.
[2019-07-11 11:46] VITALS: BP_SYST 122
--- NOTE | 2019-07-11 11:54 | NUR ---
Discharge Planning: DCP confrimed room for patient at [facility] ([phone]), transportation arranged on [facility] with [facility] ([phone]). Patient packet taken to nurse station and nurse made aware. Addendum: 07/11/19 at 1201 by Malathi Hayes DP [facility] ([phone]) Rm [id number] Addendum: 07/11/19 at 1242 by Malathi Hayes DP Dr Quan wrote a DC order for patient, DCP made nurse aware also reminder her transport on hold with [facility].
[2019-07-11 12:00] VITALS: BP_SYST 115
--- NOTE | 2019-07-11 14:00 | NUR ---
WITH DISCHARGE ORDERS REPORT GIVEN
[2019-07-11 14:38] VITALS: BP_SYST 122
--- NOTE | 2019-07-11 16:10 | NUR ---
REPOSITIONED TO SIDES
[2019-07-11 16:27] VITALS: BP_SYST 103
--- NOTE | 2019-07-11 19:06 | NUR ---
DISCHARGE TO [facility] BY AMBULANCE REPORT GIVEN TO [employer]NALY[employer] PERSON
[2019-07-12 07:06] LABS: HEPATITIS B CORE AB, TOTAL Negative (Negative); HEPATITIS B SURFACE AG Negative (Negative); HEPATITIS C VIRUS AB <0.1 s/co ratio (0.0-0.9)
== END 2019-07-11 18:35 | DRG 871 ==
LOC: SED 19:00 → SIC 22:13 → STU 07-08 02:45 → SMU 07-08 19:01
PROVIDERS: ADMIT Internal Medicine; ATTEND Internal Medicine
PROC: 02HV33Z Insertion of Infusion Device into Superior Vena Cava, Percutaneous Approach (ICD-10-PCS; 2019-07-05)
PROC: B548ZZA Ultrasonography of Superior Vena Cava, Guidance (ICD-10-PCS; 2019-07-05)
PROC: 0DJ08ZZ Inspection of Upper Intestinal Tract, Via Natural or Artificial Opening Endoscopic (ICD-10-PCS; 2019-07-10)
PROC: 0DH63UZ Insertion of Feeding Device into Stomach, Percutaneous Approach (ICD-10-PCS; principal; 2019-07-10 10:00)
DX: A41.9 Sepsis, unspecified organism (principal); R65.21 Severe sepsis with septic shock; G93.41 Metabolic encephalopathy; N17.0 Acute kidney failure with tubular necrosis; I21.4 Non-ST elevation (NSTEMI) myocardial infarction; J69.0 Pneumonitis due to inhalation of food and vomit; E43 Unspecified severe protein-calorie malnutrition; I82.411 Acute embolism and thrombosis of right femoral vein; E87.1 Hypo-osmolality and hyponatremia; G82.20 Paraplegia, unspecified; N39.0 Urinary tract infection, site not specified; Z16.24 Resistance to multiple antibiotics; G91.9 Hydrocephalus, unspecified; Z66 Do not resuscitate; E86.0 Dehydration; E87.6 Hypokalemia; F03.90 Unspecified dementia, unspecified severity, without behavioral disturbance, psychotic disturbance, mood disturbance, and anxiety; F20.9 Schizophrenia, unspecified; F31.9 Bipolar disorder, unspecified; G40.909 Epilepsy, unspecified, not intractable, without status epilepticus; I10 Essential (primary) hypertension; K29.70 Gastritis, unspecified, without bleeding; N32.0 Bladder-neck obstruction; X58.XXXA Exposure to other specified factors, initial encounter; E83.51 Hypocalcemia; N40.1 Benign prostatic hyperplasia with lower urinary tract symptoms; T18.2XXA Foreign body in stomach, initial encounter; Z87.891 Personal history of nicotine dependence; Z79.899 Other long term (current) drug therapy; Z68.21 Body mass index [BMI] 21.0-21.9, adult; I69.321 Dysphasia following cerebral infarction; Y93.89 Activity, other specified; Y92.89 Other specified places as the place of occurrence of the external cause; Y99.8 Other external cause status
CPT/HCPCS: 36415; 36600; 43246; 70450-TC; 70551; 71045; 76700-TC; 76770; 80048; 80053; 80061; 81000-TC; 82803-TC; 82962; 83605; 83690-TC; 83735-TC; 83880; 84100-TC; 84439; 84443-TC; 84478-TC; 84484; 85025; 85610-TC; 85730-TC; 86704; 86708; 86803; 87040-TC; 87081; 87086; 87340; 92610-GN; 93005; 93306; 93970; 96361; 96365; 99291; C1751; J0610; J0692; J1650; J1720; J1953; J1956; J2060; J2175; J2250; J2543; J3475; J3480; J7030; J7050; J7060; J7120